=== PATIENT | male | born 1985 | race Two or more races ===

== ENCOUNTER 2021-04-08 09:07 | Emergency (ER) | payer OTHER, SELFPAY ==
--- NOTE | ~2021-04-08 | XR_ITS ---
EXAMINATION: XR SHOULDER, RIGHT CLINICAL INFORMATION: Right shoulder pain COMPARISON: None TECHNIQUE: Right shoulder is imaged in 4 views. FINDINGS: There is bulky calcific tendinosis in region of the distal superior rotator cuff adjacent to greater tuberosity. There is no fracture, dislocation, or destructive process. No erosive change. No joint narrowing. The distal clavicle is slightly elevated which may suggest prior acromioclavicular sprain. XR/XR shoulder RT min 2V IMPRESSION: 1. Bulky calcific tendinosis in region of distal superior rotator cuff. 2. Mild elevation distal clavicle which may suggest prior acromioclavicular sprain. 3. Normal glenohumeral joint.
[2021-04-08 10:24] VITALS: BP 142/95; PULSE 68; RESP 18; TEMP 36.8; O2SAT 98; BMI 26.5
--- NOTE | 2021-04-08 12:13 | ED_ITS ---
HPI - Extremity Problem General Chief complaint: Extremity Injury, Upper Stated complaint: Shoulder pain Time Seen by Provider: 04/08/21 11:34 Source: patient Mode of arrival: ambulatory Limitations: no limitations History of Present Illness HPI Narrative: Patient presents to ED for right shoulder pain for 1 week. Patient states pain occurred after heavy lifting at work. 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 Patient denies any blunt trauma to right upper extremity, swelling, redness, coolness, hotness, numbness, or tingling. MD Complaint: extremity pain Related Data Previous Rx's Medication Instructions Recorded naproxen 500 mg PO BID PRN #20 tab 04/08/21 prednisone 60 mg PO DAILY 5 Days #15 tab 04/08/21 Allergies Allergy/AdvReac Type Severity Reaction Status Date / Time No Known Allergies Allergy Verified 04/08/21 10:23 Review of Systems Review of Systems: Yes all other systems are reviewed and are negative Constitutional: Constitutional: Reports as per HPI and Reports no additional constitutional complaints Eyes: Eyes: Reports as per HPI and Reports no additional eye complaints ENT: Reports system reviewed and no additional complaints, except as documented and Reports as per HPI Cardiovascular: Cardiovascular: Reports as per HPI and Reports no additional cardiovascular complaints Respiratory: Respiratory: Reports as per HPI and Reports no additional respiratory complaints Gastrointestinal: Gastrointestinal: Reports as per HPI and Reports no additional gastrointestinal complaints Genitourinary: Genitourinary: Reports no additional male genitourinary complaints and Reports as per HPI Musculoskeletal: Musculoskeletal: Reports no additional musculoskeletal complaints, Reports as per HPI and Reports arthralgias (Shoulder) Neurologic: Reports system reviewed and no additional complaints, except as documented and Reports as per HPI Psychiatric: Psychiatric: Reports no additional psychiatric complaints and Reports as per HPI [facility] Social History Social History Advance Directives: No Advance Directives Information Provided: No Physical Exam Vital Signs: Vital Signs: Last Vital Signs Temp 98.2 F 04/08/21 10:24 Pulse 68 04/08/21 10:24 Resp 18 04/08/21 10:24 BP 142/95 H 04/08/21 10:24 Pulse Ox 98 04/08/21 10:24 Body Mass Index 26.5 Const: General: cooperative, healthy appearing, comfortable, no acute distress, well developed, alert, awake and Physically active Orientation/co nsciousness: patient oriented x3 HENMT: Head: Yes normal to inspection, Yes No palpable skull fracture present, Yes normocephalic, Yes atraumatic and No abrasion Eyes: General: appearance normal, both eyes and all related structures Neck: Neck: Yes normal visual inspection, Yes full ROM, Yes no lymphadenopathy, Yes no meningeal signs, Yes trachea midline, Yes supple and No tender Chest: Chest palpation & inspection: normal inspection of the chest and normal palpation of entire chest wall Resp: Effort & Inspection: normal respiratory effort and able to speak in complete sentences Auscultation: clear to auscultation bilaterally Cardio: Jugular venous distension: no JVD Heart sounds: S1 normal heart sound present and S2 normal heart sound present GI: Inspection: Yes normal to inspection and No abdominal wall ecchymosis Palpation (GI): Soft to palpation, not firm, nontender, no guarding and not rigid : General: No CVA tenderness and Yes no CVA tenderness Back/Spine/Pelvis: Back: no CVA tenderness, No CVA tenderness and No back tenderness Skin: General skin exam: no rashes or lesions noted and elasticity normal Neuro: General: patient oriented x3 and no meningeal signs Cranial nerves: Yes CN's II-XII intact bilaterally Extrem: General: Yes normal to inspection and Yes full ROM Shoulder/upper arm images: 1. Tender to palpation. Decreased range of motion due to pain. Negative for erythema or swelling. Rest of right upper extremity negative for any swelling, redness, hotness, coolness, or bluish/discoloration of extremity. Vascular and neuro exam is intact. Motor exam limited due to pain Psych: Appearance: grossly normal, well kempt and not disheveled Course Course Course Narrative: Patient sent for shoulder x-ray. Reevaluation(s) Reevaluation #1: Shoulder x-ray shows tendinitis of the rotator cuff. Patient informed he will need follow-up with his workers compensation doctor for MRI to see if there is a rotator cuff tear. Patient given days off from work Time: 12:19 MDM - Extremity (Nontraumatic) MDM Narrative Medical decision making narrative: Shoulder pain. Rotator cuff tendinitis Discharge Plan Discharge Clinical Impression: Rotator cuff injury Patient Disposition: Home, Self-Care Instructions: Rotator Cuff Injury (ED), Rotator Cuff Tendinitis (ED) Additional Instructions: Lawrence radiograf?a mostr? inflamaci?n de lawrence manguito rotador. Por favor, ashleigh un seguimiento con lawrence proveedor de compensaci?n para trabajadores para que lo deriven a blaire resonancia magn?karuna para belén si hay alg?n desgarro del manguito rotador. Se le maddie? de elliot con analg?sicos y esteroides. Regrese al servicio de urgencias de inmediato si tiene hinchaz?n de la extremidad superior derecha, enrojecimiento, calor, frialdad, entumecimiento, hormigueo, dolor en el pecho, dificultad para respirar o cualquier otro s?ntoma que le preocupe. Prescriptions: New naproxen 500 mg tablet 500 mg PO BID PRN (Reason: pain) Qty: 20 RF: 0 prednisone 20 mg tablet 60 mg PO DAILY 5 Days Qty: 15 RF: 0 Stand Alone Forms: Work/School Release Interventions: ED Discharge Assessment Last Done: 04/08/21 12:32 Discharge Date/Time: 04/08/21 12:33 Print Language: Beninese
== END 2021-04-08 12:33 | disposition home or self-care (01) ==
PROVIDERS: Emergency Provider Emergency Medicine Emergency Medical Services
DX: Z04.2 Encounter for examination and observation following work accident (principal); M75.31 Calcific tendinitis of right shoulder; M25.511 Pain in right shoulder
CPT/HCPCS: 73030; 99283

== ENCOUNTER 2021-07-28 12:56 | Outpatient (REF) | payer OTHER, SELFPAY | END 2021-07-28 12:57 | disposition home or self-care (01) | LOC: HO.LAB 12:56 | PROVIDERS: Visit Provider Internal Medicine | DX: Z20.822 Contact with and (suspected) exposure to COVID-19 (principal) | CPT/HCPCS: C9803; U0003; U0005 ==

== ENCOUNTER 2025-02-07 21:16 | Emergency (ER) | payer MEDICAID, SELFPAY ==
[2025-02-07 21:28] VITALS: BP 140/98; PULSE 84; RESP 16; TEMP 36.2; O2SAT 98; BMI 28.2
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
[2025-02-07] MEDS: Diphth,Pertus(ACell),Tet Adult 0.5 ML SYRINGE IM (23:07)
[2025-02-07] MEDS: Lidocaine HCl 1 % MPF 5 ML VIAL 10 ML INFILTRATI (23:09)
[2025-02-07] MEDS: cephALEXin 500 MG CAPSULE 1000 MG PO (23:09)
[2025-02-08 00:16] VITALS: BP 140/98; PULSE 84; RESP 16; TEMP 36.2; O2SAT 98
== END 2025-02-08 00:20 | disposition home or self-care (01) ==
PROVIDERS: Emergency Provider Internal Medicine
DX: S61.211A Laceration without foreign body of left index finger without damage to nail, initial encounter (principal); S61.213A Laceration without foreign body of left middle finger without damage to nail, initial encounter; S61.215A Laceration without foreign body of left ring finger without damage to nail, initial encounter; V28.09XA Other motorcycle driver injured in noncollision transport accident in nontraffic accident, initial encounter; Y93.89 Activity, other specified; Y92.410 Unspecified street and highway as the place of occurrence of the external cause; Y99.9 Unspecified external cause status; Z23 Encounter for immunization
CPT/HCPCS: 12002; 29130; 90471; 90715; 99284; J2003